=== PATIENT | male | born 1985 | race Caucasian/White ===

== ENCOUNTER 2020-09-06 15:37 | Inpatient (IN) | payer OTHER, SELFPAY ==
[2020-09-06 15:33] VITALS: BMI 23.1
[2020-09-06 15:34] VITALS: BP 110/72; PULSE 55; RESP 18; TEMP 36.8; O2SAT 99
[2020-09-06 20:15] VITALS: BP 108/65; PULSE 53; RESP 17; TEMP 36.5; O2SAT 96
[2020-09-06] MEDS: hyDROXYzine 25 mg Capsule 50 MG PO (20:45)
[2020-09-06] MEDS: trazodone 50 mg Tablet PO (20:45)
--- NOTE | 2020-09-07 01:58 | PC.NURSE ---
PM ASSESSMENT PT IS LAYING IN HIS BED, COVERS PULLED UP OVER HIS HEAD, PT LUNG SOUNDS CLEAR THROUGHOUT ALL KUO, HEART SOUNDS NORMAL S1 AND S2 IN NORMAL SINUS, PT DENIES PAIN. PT DENIES AH/VH. DENIES HI. PT STATES HE IS HAVING SUICIDAL THOUGHTS WITHOUT A PLAN, CONTRACTED FOR SAFETY. WILL CONTINUE TO MONITOR
[2020-09-07 06:00] VITALS: BP 105/77; PULSE 55; RESP 16; TEMP 36.3; O2SAT 97
[2020-09-07 13:59] VITALS: BP 126/87; PULSE 63; RESP 16; TEMP 36.8; O2SAT 97
--- NOTE | 2020-09-07 13:59 | PM.NHP ---
Providers/Chief Complaint Admitting Physician: Domingo Collazo MD Chief Complaint: Sucidial HPI NPU History of Present Illness Rene Hernández is a 34 year old male presented to an outside emergency department reporting suicidal thoughts depression, anxiety and feeling he cannot go on. He was transferred to [facility], and admitted to the neuropsychiatric unit for definitive treatment of those issues. He presents today reporting that he has never had inpatient psychiatric care, never had outpatient psychiatric therapy, and has never been on any psychiatric medications. He reports he smoked up to max of cigarettes a day, alcohol, marijuana daily but denies cocaine, phentermine or any other illicit drug use. He never been to rehab and has had 1 DUI about 12 years ago. He denies any specific triggers just reported things like each year he gets worse and worse and since his mom about 3 years ago. He reports he has intrusive thoughts or voices his head saying bad things out him. He endorses feelings of helplessness, physical, endorses suicidal thinking and a history of suicide attempt the past. He endorses anxiety. We discussed the risk, benefits and alternatives of starting Prozac 20 mg p.o. every morning and he understood agreed proceed as documented in his note. Psychiatric history: As above. Substance abuse history: As above. Family history: He endorses mental health issues on his mother side, addiction issues both sides of family, and suicide attempts but no completions of his siblings. Developmental history: He denied any problems with his mom's with him or the or delivery. 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 He does report having speech therapy and anticoagulation classes during school. 5 social history: He endorses his parents were together when he was born and that they had his younger sister who is the only product of that union. His mother had 3 children and his that did not have any other children that he is aware of. He reports that his childhood was normal and he denied any emotional or physical abuse. Highest grade that he reached was the ninth he denies ever getting his GED. Endorsing a heterosexual divorce relationship was 5 years. Is been 1 time and he has a dog at home 16 and a daughter that is also 15, he is never in the and denies any congregational belief system. His longest job was about 11 years in the [employer] and [employer]. Current lives in a house with his her 18-year-old one of his daughters and another child that is 12 every other week. Legal history: He reports he has been to custodial more times that he could count. His longest time in custodial was 18 months. Medical history: Denied. Meds NPU Home Medications Medication Instructions Recorded Confirmed Last Taken Type No Known Home Medications 09/06/20 09/06/20 Unknown History Allergies Allergy/AdvReac Type Severity Reaction Status Date / Time No Known Allergies Allergy Verified 09/06/20 16:31 Mental Status Exam MSE Comments: This is a well-nourished, well-developed white male with hospital scrubs on with adequate grooming and limited eye contact. No abnormal movements except for mild psychomotor retardation. Motor exam in no acute distress. Speech was decreased rate and volume. Mood described as eh, affect subdued. Thought process organized. Thought content: Patient denied homicidal ideation but endorsed suicidal ideation earlier today, there were no delusions noted but he did endorse paranoia, he denied visual hallucinations but endorses occasionally feeling like he hears voices. He denied here to be attending to internal stimuli. Attention and concentration were intact and memory appeared mostly reliable but none were formally tested. He is alert and oriented x3. Insight and judgment appear fair and impulse control is limited. Vitals/I&O/Wt Last Vital Signs Temp 98.2 F 09/07/20 13:59 Pulse 63 09/07/20 13:59 Resp 16 09/07/20 13:59 BP 126/87 09/07/20 13:59 Pulse Ox 97 09/07/20 13:59 Weight last 48 hrs Weight 61.235 kg A&P Assessment and plan (1) Depression: Status: Acute (2) Anxiety: Status: Acute (3) Cannabis use disorder, mild, abuse: Status: Acute Additional A&P Information This is a 34-year-old white male with a approximately 4-year history of mental health challenges with some history of addiction and current psychosocial challenges which bring him to the point where he is open to a trial of medication and being connected with ongoing treatment. 1. Continue current medication. Start Prozac 20 mg p.o. every morning. 2. Continue every 15 minute checks for safety. 3. Encourage individual, group and milieu therapies. 4. Encourage sober living treatment after discharge at the highest level of care to which he is willing to commit. Involuntary Hold Information 96 Hour Hold: 96 Hour Involuntary Admission: No Attestations NPU Medical Necessity Statement*: Inpatient hospitalization is medically necessary and the clinically appropriate intervention at this time. We will monitor medications and make changes as indicated. Patient will be in the hospital for over two midnights. Likely length of stay 2-4 days. Coding Level of Care Code Acute Chimney Supervisor Brick for Dylan Delunad Diagnoses Depression F32.9 Anxiety F41.9 Cannabis use disorder, mild, abuse F12.10
[2020-09-07] MEDS: fluoxetine 10 mg Capsule PO ×2 (19:58→23:06)
[2020-09-07 22:00] VITALS: BP 109/71; PULSE 52; RESP 16; TEMP 36; O2SAT 100
--- NOTE | 2020-09-07 22:01 | PC.NURSE ---
Pain /anxious pt is anxious and requested medication for sleep, med nurse notified. Pt reports broken wisdom tooth, pain rated 8 on 1-10 pain scale, med nurse notified
[2020-09-07] MEDS: trazodone 50 mg Tablet PO (22:16)
[2020-09-07] MEDS: acetaminophen 325 mg Tablet 650 MG PO (22:16)
[2020-09-07] MEDS: hyDROXYzine 25 mg Capsule 50 MG PO (22:17)
--- NOTE | 2020-09-07 22:50 | PC.NURSE ---
SI pt states, I'm feeling suicidal My thoughts are racing, and I am anxious, Patient contracted for safety.
--- NOTE | 2020-09-07 23:07 | PC.NURSE ---
ADMINISTERED PROZAC 10MG ORDERED X1 TIME. MAR SHOWS DELAYED AND 2ND ADMINISTRATION. ONLY ONE DOSE GIVEN. 2ND NURSE CHECKED SPARKLE JUDGE.
--- NOTE | 2020-09-07 23:24 | PC.NURSE ---
NURSE NOTE: VISTARIL 50MG GIVEN AT APPROXIMATELY 2215 FOR C/O ANXIETY, ALONG WITH TRAZADONE 50MG FOR SLEEP AND TYLENOL 650MG FOR TOOTH PAIN = 8/10 ON PAIN SCALE. FOLLOW UP: 23:00 PT RESTING QUIETLY WITH EYES CLOSED. RESP EVEN AND NON LABORED. NO S&S OF ANXIETY, INSOMNIA OR PAIN NOTED AT THIS TIME.
[2020-09-08 06:00] VITALS: BP 117/76; PULSE 63; RESP 18; TEMP 36.2; O2SAT 92
[2020-09-08] MEDS: fluoxetine 20 mg Capsule PO (09:21)
[2020-09-08 14:00] VITALS: BP 128/87; PULSE 70; RESP 16; TEMP 36.4; O2SAT 97
--- NOTE | 2020-09-08 16:01 | P.PN_ITS ---
Subjective NPU Subjective: Interval history: Reports significant improvement in depressive symptoms, denies any interval suicidal ideation Denies any interval anxiety symptoms although continues to report ongoing life stressors, denies any interval panic symptoms Reports being compliant with medication and denies any medication side effects Continues report being future oriented and looking forward to discharge and returning to work Mental Status Exam MSE Comments: Appears stated age, appropriately groomed and dressed, bearded, sitting in chair with legs tucked up underneath his bottom, calm, cooperative, good eye contact Psychomotor activity is neither increased nor decreased, no agitation Speech is normal rate and volume, spontaneous, clear articulation, not pressured I am feeling better, full range, not labile Alert and oriented to person, place, time, situation Memory and concentration appear to be intact per interview Thought process: Linear Thought content, no delusions, no hallucinations, no suicidal ideation, no homicidal ideation Insight and judgment appear to be intact Vitals/I&O/Wt Last Vital Signs Temp 97.5 F L 09/08/20 14:00 Pulse 70 09/08/20 14:00 Resp 16 09/08/20 14:00 BP 128/87 09/08/20 14:00 Pulse Ox 97 09/08/20 14:00 A&P Assessment and plan (1) Depression: Status: Acute Qualifiers: Depression Type: unspecified Qualified Code(s): F32.9 - Major depressive disorder, single episode, unspecified (2) Anxiety: Status: Acute (3) Cannabis use disorder, mild, abuse: Status: Acute Additional A&P Information Reports improvement in mood and anxiety, tolerating medication well with no reports of any medication side effects, denies any interval suicidal ideation. CONTINUE current medication, continue to monitor Anticipate discharge tomorrow Involuntary Hold Information 96 Hour Hold: 96 Hour Involuntary Admission: No Attestations NPU Medical Necessity Statement*: Require psychiatric hospitalization for medication stabilization and coordination for safe discharge including psychiatric follow-up Coding Level of Care Code Acute Coffee Break Attendant for Dylan Fong Diagnoses Depression F32.9 Depression Type: unspecified Anxiety F41.9 Cannabis use disorder, mild, abuse F12.10
[2020-09-08] MEDS: hyDROXYzine 25 mg Capsule 50 MG PO ×2 (17:59→21:28)
[2020-09-08 20:27] VITALS: BP 121/85; PULSE 66; RESP 17; TEMP 37.4; O2SAT 96
[2020-09-09 06:00] VITALS: BP 128/78; PULSE 54; RESP 16; TEMP 36.7; O2SAT 98
[2020-09-09] MEDS: fluoxetine 20 mg Capsule PO (08:22)
--- NOTE | 2020-09-09 11:19 | PM.NDC ---
Diagnoses at Discharge Discharge Diagnosis (1) Depression: Status: Acute Qualifiers: Depression Type: unspecified Qualified Code(s): F32.9 - Major depressive disorder, single episode, unspecified (2) Anxiety: Status: Acute (3) Cannabis use disorder, mild, abuse: Status: Acute Reason for Visit Reason for Visit: Sucidial Hospital Course Hospital Course Patient presented to an [facility] emergency department with suicidal ideation, depression and anxiety in the context of multiple life stressors including the of his mother 3 years ago. Patient subsequently found out that his was wanting to separate and be with her girlfriend which further exacerbated his depressive symptoms. Patient was started on Prozac 20 mg daily which she tolerated well with no reports of any medication side effects. Despite patient's ongoing depressive symptoms he reports that he has been functioning well at work although he also reports smoking marijuana on a daily basis as a coping strategy. Patient denied any suicidal ideation throughout his hospital stay and participate in unit activities to include group sessions as well as participating in unit milieu with no reports of any behavioral disturbances. Patient was not suicidal at the time of discharge and did not appear to pose an imminent threat of harm to self or others. Patient was also able to communicate his safety plan of calling 911 or returning to an emergency department if he was experiencing any return of suicidal ideation as well as identifying the need to stay with his sister secondary to concerns of his 's new relationship exacerbating his symptoms. Low to moderate risk of harm to self given no current suicidal ideation and no current report of any depressive symptoms although patient's risk may be elevated if he continues to use substances or is noncompliant with his medication or medication management follow-up or continues to utilize maladaptive coping strategies leading to unexpected, impulsive behavior. Risk mitigation included psychiatric hospitalization, medication stabilization as well as coordinating for post discharge follow-up and the recommendation to abstain from the use of substances and alcohol. Patient was able to communicate his understanding of the need to abstain from the use of substances and alcohol as well as the need for compliance with his medication medication management follow-up in order to further mitigate his risk of harm to self and others. Involuntary Hold Information 96 Hour Hold: 96 Hour Involuntary Admission: No Mental Status Exam MSE Comments: Sitting on his bed, calm, cooperative, interactive, appropriately groomed and dressed, good eye contact Psychomotor activity is neither increased nor decreased, no agitation Speech is normal rate and volume, spontaneous, clear articulation, not pressured I feel pretty good, full range, smiles appropriately at times during interview, not labile Alert and oriented to person, place, time, situation Memory and concentration appear to be intact per interview Thought process: Linear Thought content, no delusions, no hallucinations, no suicidal ideation, no homicidal ideation Insight and judgment appear to be intact Discharge Data Vitals: Last Vital Signs Temp 98.1 F 09/09/20 06:00 Pulse 54 L 09/09/20 06:00 Resp 16 09/09/20 06:00 BP 128/78 09/09/20 06:00 Pulse Ox 98 09/09/20 06:00 Discharge Plan Discharge Patient Disposition: Home Condition: Stable Prescriptions: New fluoxetine 20 mg Capsule 20 mg PO DAILY Qty: 30 RF: 0 No Action No Known Home Medications RF: 0 Discharge Orders: Discharge Order (Routine); Ordered 09/09/20 Ordered By: Gabrielle Morgan Referrals: [facility] [Other] (Once discharged please call [phone] and ask to do an intake assessment over the phone. During this assessment you will discuss services you would like to have, such as a psychiatrist to manage medications, therapy, case management, etc. Once the assessment is completed they will refer you to appropriate services. A referral was made for you to Bryce while you were in the hospital.) Discharge Diet: Regular Discharge Activity: Resume usual activity Discharge Attestations NPU Time Spent in Discharge Care*: greater than 30 min Status at Discharge: Cognitive status at discharge: cognitively intact, Behavioral status at discharge: cooperative, Functional status at discharge: independent ambulation Overall status at discharge: patient is back to baseline Coding Level of Care Code Acute Contracts Attorney for Demi Fwd Diagnoses Depression F32.9 Depression Type: unspecified Anxiety F41.9 Cannabis use disorder, mild, abuse F12.10
[2020-09-09 11:34] VITALS: BP 128/78; PULSE 54; RESP 16; TEMP 36.7; O2SAT 98
--- NOTE | 2020-09-09 14:53 | PM.NPTHER ---
NPU Therapy Progress Note Therapy Progress Note Date: 09/08/20 Time In: 18:30 Time Out: 19:30 Symptoms Reported: depression, anger Mood: pleasant, sad, confused, hurt Progress Note: RYANNE was speaking with a patient when nursing staff approached and reports Rene request to speak with this METER READER CHIEF before she leaves. Rene meets with RYANNE and is pleasant and appropriate to talk to. He is appropriately upset due to just getting off the phone with his in which she tells him she is leaving their marriage for a person (female) that is their mutual friend and coworker. METER READER CHIEF and Rene process this heavy news. Rene talks about his upbringing, hx of substance use, grief/loss issues, etc. Intervention: METER READER CHIEF listened and provided empathy and support. Rene was allowed to process shock of receiving this information. RYANNE discussed Rene's typical barriers from seeking treatment. industrial workers educated on mental health services and why/how they could be helpful to him. Trauma emotions were discussed as he has had many difficult events in his childhood. He reports beginning substance use about the age of 9. He started meth, acid, ecstasy, and abusing pills after this. He thanks RYANNE and tells her this is the most i've ever talked to anyone . Reported Goals Before Discharge: Rene reports his goals are to focus on himself and his daughter. He wants to get himself healthy and realizes the only way he can be the person he wants to be for those he loves is by becoming stable himself. He does want to follow up and receive outpatient services upon going back home. He is not from the [facility]. He thanked RYANNE for speaking with him.
== END 2020-09-09 13:29 | disposition home or self-care (01) | DRG 880 ==
PROVIDERS: Admitting Provider Psychiatry & Neurology Psychiatry; Visit Provider Psychiatry & Neurology Psychiatry
DX: F41.8 Other specified anxiety disorders (principal); R45.851 Suicidal ideations; F12.10 Cannabis abuse, uncomplicated; Z63.0 Problems in relationship with spouse or partner
CPT/HCPCS: 12345